=== PATIENT | female | born 1985 | race Caucasian/White ===

== ENCOUNTER 2020-03-31 12:00 | Inpatient (IN) | payer OTHER ==
[~2020-03-31] VITALS: Ht 165.1 cm; Wt 76.2 kg
[2020-04-10] MEDS ORDERED: PRENATAL TABLE1 EAC1 PO (06:52)
== END 2020-04-12 11:40 | disposition home or self-care (01) | DRG 807 ==
LOC: LDR 04-10 06:17 → SURG-SUITE 04-10 06:17 → OB/GYN 04-10 12:15 → SURG-SUITE 04-10 16:58
PROVIDERS: ADMIT Obstetrics & Gynecology Maternal & Fetal Medicine; ATTEND Obstetrics & Gynecology Maternal & Fetal Medicine
PROC: 10E0XZZ Delivery of Products of Conception, External Approach (ICD-10-PCS; principal; 2020-04-10)
PROC: 4A1HXFZ Monitoring of Products of Conception, Cardiac Rhythm, External Approach (ICD-10-PCS; 2020-04-10)
DX: O80 Encounter for full-term uncomplicated delivery (principal); Z37.0 Single live birth; Z3A.39 39 weeks gestation of pregnancy; Z20.828 Contact with and (suspected) exposure to other viral communicable diseases